=== PATIENT | female | born 1930 | race Caucasian/White ===

== ENCOUNTER 2019-04-08 14:29 | Emergency (ER) | payer MEDICARE, OTHER ==
[2019-04-08 14:56] VITALS: BP 115/69
--- NOTE | 2019-04-08 15:08 | UC ---
Shoulder Pain HPI - HPI Summary HPI Summary: Patient c/o right shoulder pain that began a week ago with a snap while reaching across her chest. Had a snap again yesterday with relief of the pain but developed a large bruise. - History of Current Complaint Chief Complaint: UCUpperExtremity Stated Complaint: RT SHOULDER PAIN Hx Obtained From: Patient Onset/Duration: Sudden Onset, Lasting Weeks - 1, Resolved - since yesterday Timing: Constant Severity Initially: Severe Severity Currently: Mild Pain Intensity: 3 Character: Sharp Aggravating Factor(s): Movement Alleviating Factor(s): Rest Associated Signs And Symptoms: Positive: Bruising Related History: Dominant Hand Right - Allergies/Home Medications Allergies/Adverse Reactions: Allergies Allergy/AdvReac Type Severity Reaction Status Date / Time valdecoxib [From Bextra] Allergy Intermediate Rash Verified 04/08/19 15:06 antibiotic Allergy tongue Uncoded 04/08/19 15:06 swelling PMH/Surg Hx/FS Hx/Imm Hx Previously Healthy: Yes Endocrine History: Diabetes Cardiovascular History: Hypertension - Surgical History Surgical History: Yes Surgery Procedure, Year, and Place: hysterectomy,carpal tunnel right, then left ; TOTAL RIGHT HIP REPLACEMENT; Right DeQuerven release [facility]. LEFT AND RIGHT KNEE ARTHROSCOPIES. TONSILLECTOMY. BILATERAL CATARACTS REMOVED-[facility] [place] - Family History Known Family History: Positive: Cardiac Disease - Social History Occupation: Retired Lives: With Family Alcohol Use: None Substance Use Type: None Smoking Status (MU): Never Smoked Tobacco Review of Systems All Other Systems Reviewed And Are Negative: Yes Skin: Positive: Bruising - Right upper arm ENT: Positive: Ear Ache Musculoskeletal: Positive: Arthralgia - right shoulder Is Patient Immunocompromised?: No Physical Exam Triage Information Reviewed: Yes Appearance: Well-Appearing, No Pain Distress, Well-Nourished Vital Signs: Initial Vital Signs Temp 98.4 F 04/08/19 14:43 Pulse 92 04/08/19 14:43 Resp 18 04/08/19 14:43 BP 115/69 04/08/19 14:43 Pulse Ox 99 04/08/19 14:43 Vital Signs Reviewed: Yes Eyes: Positive: Conjunctiva Clear ENT: Positive: Pharynx normal, TMs normal Neck exam: Normal Respiratory Exam: Normal Cardiovascular: Positive: RRR - regular premature beats, Murmur:Sys:Grade _?_/ - 3/6 Musculoskeletal: Positive: Strength Limited @ - Internal rotaion external rotation and abduction 4/5 with pain., ROM Limited @ - mild decreased right shoulder active flexion Neurological Exam: Normal Psychological Exam: Normal Skin Exam: Normal Shoulder Course/Dx - Differential Dx/Diagnosis Differential Diagnosis/HQI/PQRI: Arthritis, Rotator Cuff Injury, Sprain, Strain Provider Diagnosis: Partial tear of right rotator cuff Discharge - Sign-Out/Discharge Documenting (check all that apply): Post-Discharge Follow Up All imaging exams completed and their final reports reviewed: No Studies - Discharge Plan Condition: Stable Disposition: HOME Patient Education Materials: Rotator Cuff Injury (ED) Referrals: Renato Zamudio MD [Primary Care Provider] - Anel Grimes MD [Medical Doctor] - 3 Days (follow up possible rotator cuff tear) Additional Instructions: Avoid activities that make you raise the right arm up. - Billing Disposition and Condition Condition: STABLE Disposition: Home
== END 2019-04-08 15:35 | disposition home or self-care (01) ==
LOC: UCCORT 14:29
DX: M75.111 Incomplete rotator cuff tear or rupture of right shoulder, not specified as traumatic (principal); E11.9 Type 2 diabetes mellitus without complications; I10 Essential (primary) hypertension; Z88.1 Allergy status to other antibiotic agents; Z88.8 Allergy status to other drugs, medicaments and biological substances
CPT/HCPCS: 99211; G0463

== ENCOUNTER 2019-05-15 17:51 | Emergency (ER) | payer MEDICARE, OTHER ==
[2019-05-15 18:56] VITALS: BP 108/59
--- NOTE | 2019-05-15 19:45 | UC ---
Respiratory Complaint HPI - HPI Summary HPI Summary: Pt c/o "return of cough". Pt was diagnosed with bronchitis 12 days ago and was prescribed doxycycline BID X 10 days. Pt completed the prescription 2 days ago and states that cough has returned. Cough is worse at night in recumbent position. - History of Current Complaint Chief Complaint: UCRespiratory Stated Complaint: COUGH Time Seen by Provider: 05/15/19 18:57 Hx Obtained From: Patient ?: No Onset/Duration: Sudden Onset, Lasting Days, Still Present Timing: Intermittent Episodes Severity Initially: Mild Severity Currently: Mild Pain Intensity: 0 Character: Cough: Nonproductive Aggravating Factors: Deep Breaths, Recumbent Position Alleviating Factors: Nothing Associated Signs And Symptoms: Positive: URI, Nasal Congestion - Risk Factors Pulmonary Embolism Risk Factors: Negative Cardiac Risk Factors: Negative Pseudomonas Risk Factors: Negative Tuberculosis Risk Factors: Negative - Allergies/Home Medications Allergies/Adverse Reactions: Allergies Allergy/AdvReac Type Severity Reaction Status Date / Time valdecoxib [From Bextra] Allergy Intermediate Rash Verified 05/15/19 18:34 cephalexin Allergy Swelling Verified 05/15/19 18:34 Of tongue Home Medications: Home Medications Aspirin [Adult Aspirin Regimen] 81 mg PO DAILY 05/15/19 [History Confirmed 05/15] Calcium Carbonate/Vitamin D3 [Calcium 600+D Softgel] 1 cap PO DAILY 05/15/19 [ History Confirmed 05/15/19] Tramadol HCl/Acetaminophen [Ultracet Tablet] 1 tab PO PRN 05/15/19 [History] PMH/Surg Hx/FS Hx/Imm Hx Previously Healthy: Yes Cardiovascular History: Hypertension - Surgical History Surgical History: Yes Surgery Procedure, Year, and Place: hysterectomy,carpal tunnel right, then left ; TOTAL RIGHT HIP REPLACEMENT; Right DeQuerven release [facility] [place]. LEFT AND RIGHT KNEE ARTHROSCOPIES. TONSILLECTOMY. BILATERAL CATARACTS REMOVED-[facility] [place] - Family History Known Family History: Positive: Cardiac Disease - Social History Occupation: Retired Lives: With Family Alcohol Use: None Substance Use Type: None Smoking Status (MU): Never Smoked Tobacco Review of Systems All Other Systems Reviewed And Are Negative: Yes Constitutional: Positive: Negative Skin: Positive: Negative Eyes: Positive: Negative ENT: Positive: Sinus Congestion Respiratory: Positive: Cough Cardiovascular: Positive: Negative Gastrointestinal: Positive: Negative Genitourinary: Positive: Negative Motor: Positive: Negative Neurovascular: Positive: Negative Musculoskeletal: Positive: Negative Neurological: Positive: Negative Psychological: Positive: Negative Is Patient Immunocompromised?: No Physical Exam Triage Information Reviewed: Yes Appearance: Well-Appearing Vital Signs: Initial Vital Signs Temp 98.4 F 05/15/19 18:47 Pulse 83 05/15/19 18:47 Resp 24 05/15/19 18:47 BP 108/59 05/15/19 18:47 Pulse Ox 96 05/15/19 18:47 Vital Signs Reviewed: Yes Eye Exam: Normal ENT: Positive: Nasal congestion Dental Exam: Normal Neck exam: Normal Respiratory Exam: Normal Respiratory: Positive: Normal breath sounds Cardiovascular Exam: Normal Cardiovascular: Positive: Murmur:Sys:Grade _?_/ Musculoskeletal Exam: Normal Neurological Exam: Normal Psychological Exam: Normal Skin Exam: Normal Diagnostics - Radiology No standard instances Radiology Interpretation Completed By: ED Physician - [facility]A Respiratory Course/Dx - Differential Dx/Diagnosis Differential Diagnosis/HQI/PQRI: Bronchitis Provider Diagnosis: Bronchitis Discharge - Sign-Out/Discharge Documenting (check all that apply): Patient Departure All imaging exams completed and their final reports reviewed: No - Discharge Plan Condition: Stable Disposition: HOME Prescriptions: Benzonatate CAP* [Tessalon 100 MG CAP*] 200 mg PO Q8H PRN #30 cap PRN Reason: Cough Fluticasone NASAL SPRAY 50MCG* [Flonase NASAL SPRAY 50MCG*] 1 spray BOTH NARES DAILY PRN #1 btl PRN Reason: Congestion predniSONE [Prednisone 20 MG TAB] 20 mg PO DAILY #5 tablet Patient Education Materials: Viral Syndrome (ED), Acute Cough (ED) Referrals: Renato Zamudio MD [Primary Care Provider] - As Soon As Possible - Billing Disposition and Condition Condition: STABLE Disposition: Home
--- NOTE | 2019-05-16 10:15 | ED ---
Progress - Progress Note Progress Note: Final xray read reviewed, and no acute disease. Course/Dx - Diagnoses Provider Diagnoses: Bronchitis Discharge - Sign-Out/Discharge Documenting (check all that apply): Patient Departure All imaging exams completed and their final reports reviewed: Yes - Discharge Plan Condition: Stable Disposition: HOME Prescriptions: Benzonatate CAP* [Tessalon 100 MG CAP*] 200 mg PO Q8H PRN #30 cap PRN Reason: Cough Fluticasone NASAL SPRAY 50MCG* [Flonase NASAL SPRAY 50MCG*] 1 spray BOTH NARES DAILY PRN #1 btl PRN Reason: Congestion predniSONE [Prednisone 20 MG TAB] 20 mg PO DAILY #5 tablet Patient Education Materials: Viral Syndrome (ED), Acute Cough (ED) Referrals: Renato Zamudio MD [Primary Care Provider] - As Soon As Possible - Billing Disposition and Condition Condition: STABLE Disposition: Home
== END 2019-05-15 20:00 | disposition home or self-care (01) ==
LOC: UCCORT 17:51
DX: J40 Bronchitis, not specified as acute or chronic (principal); I10 Essential (primary) hypertension
CPT/HCPCS: 71046; 99212; G0463

== ENCOUNTER 2020-03-15 16:30 | Emergency (ER) | payer MEDICARE, OTHER ==
--- NOTE | 2020-03-15 17:03 | UC ---
Hand/Wrist HPI - HPI Summary HPI Summary: 89 yo female presents with LEFT index finger pain. She tells me that for the last 2 days she has had left index finger MCP pain and swelling. Noticed some redness to the area. She states she has had gout in the past, but always in her toes and never in her fingers. This feels similar to gout in her toes though. Denies injury, numbness, or tingling. - History Of Current Complaint Stated Complaint: RIGHT POINTER FINGER INJURY Time Seen by Provider: 03/15/20 17:02 Hx Obtained From: Patient Onset/Duration: Sudden Onset Severity Initially: Mild Severity Currently: Moderate Pain Intensity: 6 Pain Scale Used: 0-10 Numeric - Allergies/Home Medications Allergies/Adverse Reactions: Allergies Allergy/AdvReac Type Severity Reaction Status Date / Time valdecoxib [From Bextra] Allergy Intermediate Rash Verified 03/15/20 17:10 cephalexin Allergy Swelling Verified 03/15/20 17:10 Of tongue Home Medications: Home Medications Simvastatin 20 mg PO BEDTIME 01/26/13 [History Confirmed 03/15/20] amLODIPine TAB* 5 mg PO QAM 01/26/13 [History Confirmed 03/15/20] Cyanocobalamin TAB* [Vitamin B12 TAB*] 1,000 mcg PO QAM 12/25/15 [History Confirmed 03/15/20] Lisinopril/HCTZ 10.5(NF) [Zestoretic 09/02.5(NF)] 1 tab PO DAILY 04/08/19 [ History Confirmed 03/15/20] Trazodone HCl 50 mg PO QPM 04/08/19 [History Confirmed 03/15/20] Aspirin [Adult Aspirin Regimen] 81 mg PO DAILY 05/15/19 [History Confirmed 03/15] Calcium Carbonate/Vitamin D3 [Calcium 600+D Softgel] 1 cap PO DAILY 05/15/19 [ History Confirmed 03/15/20] Montelukast Sodium TAB* [Singulair TAB*] 10 mg PO DAILY 03/15/20 [History Confirmed 03/15/20] predniSONE [Prednisone 20 MG TAB] 20 mg PO BID 5 Days #10 tablet 03/15/20 [Rx] PMH/Surg Hx/FS Hx/Imm Hx - Additional Past Medical History Additional PMH: Gout Endocrine History: Dyslipidemia Cardiovascular History: Hypertension - Surgical History Surgical History: Yes Surgery Procedure, Year, and Place: hysterectomy,carpal tunnel right, then left ; TOTAL RIGHT HIP REPLACEMENT; Right DeQuerven release [facility]. LEFT AND RIGHT KNEE ARTHROSCOPIES. TONSILLECTOMY. BILATERAL CATARACTS REMOVED-[facility] - Family History Known Family History: Positive: Cardiac Disease - Social History Alcohol Use: None Substance Use Type: None Smoking Status (MU): Never Smoked Tobacco Review of Systems All Other Systems Reviewed And Are Negative: No Constitutional: Positive: Negative Skin: Positive: Negative Respiratory: Positive: Negative Cardiovascular: Positive: Negative Neurovascular: Positive: Negative Musculoskeletal: Positive: Other: - Left index MCP pain Neurological/Mental Status: Positive: Negative Psychological: Positive: Negative Physical Exam - Summary Physical Exam Summary: GENERAL: NAD. WDWN. No pain distress. SKIN: No rashes, sores, lesions, or open wounds. CHEST: No accessory muscle use. Breathing comfortably and in no distress. CV: Pulses intact radial and ulnar. Cap refill <2seconds MSK: LEFT INDEX FINGER: MCP with moderate edema and ttp. Warmth to the area with mild erythema. Pain with flexion and extension. NEURO: Alert. Sensations intact hand and all fingers. PSYCH: Age appropriate behavior. Triage Information Reviewed: Yes Vital Signs: Vital Signs: Temp Pulse Resp BP Pulse Ox 98.7 F 68 18 123/66 100 03/15/20 17:13 03/15/20 17:13 03/15/20 17:13 03/15/20 17:13 03/15/20 17:13 Vital Signs Reviewed: Yes Diagnostics - Radiology Finger XR Radiology Interpretation Completed By: Radiologist Summary of Radiographic Findings: IMPRESSION: * OSTEOPENIA WITH NO DISPLACED FRACTURE IDENTIFIED. * QUESTIONABLE PERIARTICULAR EROSIONS ABOUT THE SECOND MCP (CORRELATE WITH CLINICAL SIGNS OF INFLAMMATORY ARTHROPATHY). 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 Hand/Wrist Course/Dx - Course Course Of Treatment: XR as above. Strong suspicion for gout at this time given hx, risk factors, and XR. The last lab renal function values I have for the pt are from 2014 and she was CKD3 at that time. Assuming she is still CKD3, or perhaps CKD4 at this time, will avoid NSAIDs. Will rx for 5 days of prednisone and have her take tylenol as directed for discomfort. Strongly advised to call her PCP to schedule a recheck for early next week. - Differential Dx/Diagnosis Provider Diagnosis: Gout Discharge ED - Sign-Out/Discharge Documenting (check all that apply): Patient Departure All imaging exams completed and their final reports reviewed: Yes - Discharge Plan Condition: Stable Disposition: HOME Prescriptions: predniSONE [Prednisone 20 MG TAB] 20 mg PO BID 5 Days #10 tablet Patient Education Materials: Low Purine Diet (ED), Gout (ED) Referrals: Renato Zamudio MD [Primary Care Provider] - Additional Instructions: If you develop a fever, shortness of breath, chest pain, new or worsening symptoms - please call your PCP or go to the ED immediately. 1) Please take tylenol as directed for discomfort 2) I recommend that you call your primary doctor to let them know about today's visit and schedule a recheck early next week - Billing Disposition and Condition Condition: STABLE Disposition: Home
[2020-03-15 17:18] VITALS: BP 123/66
== END 2020-03-15 18:22 | disposition home or self-care (01) ==
LOC: UCCORT 16:30
DX: M10.042 Idiopathic gout, left hand (principal); M85.842 Other specified disorders of bone density and structure, left hand; M19.042 Primary osteoarthritis, left hand; E78.5 Hyperlipidemia, unspecified; I10 Essential (primary) hypertension; Z79.82 Long term (current) use of aspirin; Z79.899 Other long term (current) drug therapy; Z96.641 Presence of right artificial hip joint; Z88.1 Allergy status to other antibiotic agents; Z88.8 Allergy status to other drugs, medicaments and biological substances
CPT/HCPCS: 73140; 99212; G0463